=== PATIENT | male | born 1940 | race Caucasian/White ===

== ENCOUNTER → 2017-02-16 | Outpatient (CLI) | payer MEDICARE ==
--- NOTE | 2017-02-18 08:43 | PE ---
EXAMINATION TYPE: PET CT fusion skull to thigh DATE OF EXAM: 02/16/2017 COMPARISON: NONE HISTORY: Right-sided lung cancer progress study per order though suspected initial study since patien t denies recent surgery or treatment, history of treated prostate cancer 2005 per patient. TECHNIQUE: Following the intravenous administration of 14.82 mCi of F-18 FDG, whole body images are performed from the skull base to the midthigh. Images are reviewed on the computer in the coronal, a xial, and sagittal planes. Reconstructed rotating images are created on independent workstation and reviewed on the computer. A localization and attenuation correction CT is performed in conjunction with the PET scan. SCAN: Initial Scan ? FINDINGS: SKULL BASE AND NECK: No suspicious hypermetabolic uptake is seen in the neck to suggest neck adenopa thy. CHEST, MEDIASTINUM, AND HILAR REGION: There is background of moderate to severe emphysematous change. There is lower lobe dependent atelectasis and scattered multifocal and dependent scarring and/or hon eycombing fibrosis seen bilaterally. There is right suprahilar hypermetabolic mass measuring approximately 4.3 x 3.8 cm on axial image 84, max SUV is 9.9. Craniocaudal length is suspected just over 5 cm This mass extends to right hilar lev el where there is more mild hypermetabolic uptake. Mass invades the mediastinum up to right aspect of trachea and indistinct fat plane from SVC and right pulmonary artery near axial image 92. Surroundin g opacities felt to reflect adjacent atelectatic change. There is prominent partially calcified right paratracheal lymph node measures 1.3 x 0.8 cm on axial i mage 83 without definitive abnormal hypermetabolic uptake. No additional areas of abnormal hypermetabolic uptake are identified in the remainder of the thorax. ABDOMEN AND PELVIS: No suspicious areas of abnormal hypermetabolic uptake are seen in the abdomen or pelvis. Normal excretion is present. OSSEOUS STRUCTURES: No suspicious hypermetabolic uptake is seen in osseous structures. OTHER CT: Nasal septum is deviated to right of midline. There is moderate calcified plaque at bilateral carotid bulbs. There is suspicious focal prominence of portions of the right upper extremity vein near axial image 4 0 and more proximally, thrombus cannot be excluded. 3 vessel coronary artery calcification is present. Aorta measures up to 3.8 cm in diameter. There are calcifications posteriorly in the liver. There is slight nodular thickening to both adrenal glands without abnormal hypermetabolic uptake favo ring hyperplasia. There are round hypodense lesions scattered throughout both kidneys without abnormal hypermetabolic u ptake likely reflect reflecting proteinaceous or hemorrhagic cysts. Sigmoid colonic diverticulosis is present. There is moderate calcified plaque of aorta extending into pelvic branch vessels. Goal therapy seeds are seen in prostate gland, dense calcification is noted. There is facet arthropathy in the lower lumbar spine. There is multilevel spurring in the thoracolumb ar spine. Moderate to severe joint space loss is seen in both hips. IMPRESSION: Abnormal hypermetabolic uptake in right suprahilar/hilar lobulated mass correlates to bio psy-proven carcinoma. No metastatic disease is evident. Right hilar adenopathy is likely present santosh stinct from mass. TNM STAGING T3, N1,MO AJCC STAGING IIIa
== END | disposition home or self-care (01) ==
LOC: RADPETMAIN 07:33
PROVIDERS: ATTEND Internal Medicine Sleep Medicine
DX: C34.00 Malignant neoplasm of unspecified main bronchus (principal)
CPT/HCPCS: 78815; A9552

== ENCOUNTER 2017-02-17 11:27 | Emergency (ER) | payer MEDICARE ==
--- NOTE | 2017-02-17 12:53 | ED ---
Extremity Problem HPI <Sudhir Brennan - Last Filed: 02/17/17 14:46> - General Source: patient, RN notes reviewed, old records reviewed Mode of arrival: wheelchair Limitations: no limitations <Diana Nixon - Last Filed: 02/17/17 15:16> - General Chief complaint: Extremity Problem,Nontraumatic Stated complaint: RT LEG SWELLING AFTER PET SCAN Time Seen by Provider: 02/17/17 12:35 - History of Present Illness Initial comments: 76-year-old male presents the ED chief complaint of right lower extremity swelling and achiness whenever he walks for the past day. He reports that he had a PET scan yesterday. He states that the swelling and pain is related to the position he had a BM for the PET scan. He reports that he was diagnosed with lung cancer and is currently being treated with Dr. Hernandez, Dr. Blue his exhaust worker. Patient reports his primary care doctor is Dr. Collins. He denies any specific chest pain or shortness of breath at this time. He reports that he's had some minor numbness and tingling to the toes. He reports that that may be chronic. Denies any fever or chills or any other associated symptoms. He reports that the leg is nontender to touch. He also states that there is no redness noted to the leg. He reports that it originally felt like a charley horse over the back of his calf and leg whenever he walks. (Tiffani Diana) - Related Data Home Medications Medication Instructions Recorded Confirmed Albuterol Inhaler [Ventolin Hfa 1 - 2 puff INHALATION RT-Q6H PRN 02/17/17 Inhaler] Albuterol Nebulized [Ventolin 2.5 mg INHALATION RT-BID 02/17/17 02/17/17 Nebulized] Budesonide/Formoterol Fumarate 2 puff INHALATION RT-BID 02/17/17 02/17/17 [Symbicort 160-4.5 Mcg Inhaler] Repaglinide [Prandin] 0.5 mg PO AC-TID 02/17/17 02/17/17 Simvastatin [Zocor] 20 mg PO HS 02/17/17 02/17/17 Vit C/E/Zn/Coppr/Lutein/Zeaxan 1 cap PO BID 02/17/17 02/17/17 [Preservision Areds 2 Softgel] Previous Rx's Medication Instructions Recorded Rivaroxaban [Xarelto] 15 mg PO BID 21 Days 02/17/17 Allergies Allergy/AdvReac Type Severity Reaction Status Date / Time No Known Allergies Allergy Verified 02/17/17 13:07 Review of Systems ROS Other: All systems not noted in ROS Statement are negative. <Sudhir Brennan - Last Filed: 02/17/17 14:46> ROS Other: All systems not noted in ROS Statement are negative. <Diana Nixon - Last Filed: 02/17/17 15:16> ROS Statement: Those systems with pertinent positive or pertinent negative responses have been documented in the HPI. Past Medical History Past Medical History: Cancer, COPD, Diabetes Mellitus Additional Past Medical History / Comment(s): lung ca prostate ca kidney stone History of Any Multi-Drug Resistant Organisms: None Reported Past Surgical History: Back Surgery Additional Past Surgical History / Comment(s): lithotripsy Past Psychological History: No Psychological Hx Reported Smoking Status: Former smoker Past Alcohol Use History: None Reported <Diana Nixon - Last Filed: 02/17/17 15:16> General Exam <Sudhir Brennan - Last Filed: 02/17/17 14:46> Limitations: no limitations General appearance: alert, in no apparent distress Head exam: Present: atraumatic, normocephalic, normal inspection Eye exam: Present: normal appearance, PERRL, EOMI. Absent: scleral icterus, conjunctival injection, periorbital swelling ENT exam: Present: normal exam, mucous membranes moist Neck exam: Present: normal inspection. Absent: tenderness, meningismus, lymphadenopathy Respiratory exam: Present: normal lung sounds bilaterally. Absent: respiratory distress, wheezes, rales, rhonchi, stridor Cardiovascular Exam: Present: regular rate, normal rhythm, normal heart sounds. Absent: systolic murmur, diastolic murmur, rubs, gallop, clicks GI/Abdominal exam: Present: soft, normal bowel sounds. Absent: distended, tenderness, guarding, rebound, rigid Right Upper Leg exam: Present: swelling Knee exam: Present: normal inspection, full ROM, swelling Lower Leg exam: Present: normal inspection, full ROM, swelling Ankle exam: Present: normal inspection, full ROM, swelling Foot/Toe exam: Present: normal inspection, full ROM, swelling Neurovascular tendon exam: Present: no vascular compromise (Posterior tibial pulses 2+. Dorsalis pedis pulses) Gait: observed and normal ( 1+) Back exam: Present: normal inspection Neurological exam: Present: alert, oriented X3, CN II-XII intact Psychiatric exam: Present: normal affect, normal mood Skin exam: Present: warm, dry, intact, normal color. Absent: rash <TiffaniDiana - Last Filed: 02/17/17 15:16> - General Exam Comments Initial Comments: 76-year-old male. No acute distress. (TiffaniDiana) Medical Decision Making <Sudhir Brennan - Last Filed: 02/17/17 14:46> - Radiology Data Radiology results: report reviewed <TiffaniDiana - Last Filed: 02/17/17 15:16> - Medical Decision Making I interviewed and examined the patient .. He has a swollen tender right leg which started today. He had a PET scan done yesterday reports not available at this time. The scan was from the base of the skull to the mid thigh. The patient has a negative Homans sign but positive ultrasound for DVT from the right knee IV to the distal popliteal vein. The case discussed with Dr. Daniel on-call oncologist. He recommends Xarelto and follow-up with his oncologist Dr. Jeronimo. Dr. Brennan (Sudhir Brennan) 76-year-old male presents the ED chief complaint of right lower extremity swelling and achiness whenever he walks for the past day. He reports that he had a PET scan yesterday. He states that the swelling and pain is related to the position he had a BM for the PET scan. He reports that he was diagnosed with lung cancer and is currently being treated with Dr. Hernandez, Dr. Blue his exhaust worker. Patient reports his primary care doctor is Dr. Collins. He denies any specific chest pain or shortness of breath at this time. He reports that he's had some minor numbness and tingling to the toes. [facility] ultrasound is positive for SVT. Patient will be discharged at this time started on Cerner also. I discussed this with Dr. Brennan who talked to Dr. Daniel the on-call oncologist. He recommends following up with Dr. Hatfield tomorrow. He does have a MRI for his brain scheduled tomorrow as well as follow-up on Saturday with his oncologist. Patient agrees to treatment plan will comply. Return parameters were discussed. (Diana Nixon) - Radiology Data There is an extensive DVT involving the femoral vein and popliteal vein. Extends into the external iliac vein. (Diana Nixon) Disposition <Sudhir Brennan - Last Filed: 02/17/17 14:46> Time of Disposition: 14:54 <Diana Nixon - Last Filed: 02/17/17 15:16> Clinical Impression: Right leg DVT Disposition: HOME SELF-CARE Condition: Good Instructions: Deep Venous Thrombosis (ED) Additional Instructions: Patient advised to apply warm compresses over the leg. Patient should continue to ambulate. Return to the emergency department at once if there is severe shortness of breath or chest pain. Patient needs to take all of the medication as directed. Follow-up on Saturday with her scheduled appointments. Also recommend following up with her primary care provider. Return to the emergency department if any alarming signs or symptoms occur. Prescriptions: Rivaroxaban [Xarelto] 15 mg PO BID 21 Days Referrals: Jonathan Collins MD [Primary Care Provider] - 1-2 days
--- NOTE | 2017-02-17 13:46 | US ---
EXAMINATION TYPE: US venous doppler duplex LE RT DATE OF EXAM: 02/17/2017 1:33 PM COMPARISON: NONE CLINICAL HISTORY: Pain. Right leg pain and swelling x 2 days SIDE PERFORMED: Right TECHNIQUE: The lower extremity deep venous system is examined utilizing real time linear array sonog bora with graded compression, doppler sonography and color-flow sonography. VESSELS IMAGED: External Iliac Vein (EIV) Common Femoral Vein Deep Femoral Vein Greater Saphenous Vein * Femoral Vein Popliteal Vein Small Saphenous Vein * Proximal Calf Veins (* superficial vessels) Right Leg: Positive for DVT right EIV through distal popliteal IMPRESSION: There is extensive deep venous acute thrombosis involving the femoral vein and popliteal vein. This extends into the external iliac vein.
[2017-02-17 14:11] VITALS: RESP 17
[2017-02-17] MEDS ORDERED: RIVAROXABAN 15 MG TAB PO STA (14:51)
[2017-02-17 15:10] VITALS: BP 131/76; PULSE 77; TEMP 97.9
== END 2017-02-17 15:23 | disposition home or self-care (01) ==
LOC: EC 11:27
DX: I82.431 Acute embolism and thrombosis of right popliteal vein (principal); I82.411 Acute embolism and thrombosis of right femoral vein; I82.421 Acute embolism and thrombosis of right iliac vein; J44.9 Chronic obstructive pulmonary disease, unspecified; E11.9 Type 2 diabetes mellitus without complications; Z87.891 Personal history of nicotine dependence; Z85.46 Personal history of malignant neoplasm of prostate; Z85.118 Personal history of other malignant neoplasm of bronchus and lung; Z79.51 Long term (current) use of inhaled steroids; Z79.84 Long term (current) use of oral hypoglycemic drugs; Z79.899 Other long term (current) drug therapy
CPT/HCPCS: 99284

== ENCOUNTER → 2017-05-11 | Outpatient (CLI) | payer MEDICARE ==
--- NOTE | 2017-05-12 20:56 | PE ---
EXAMINATION TYPE: PET CT fusion skull to thigh DATE OF EXAM: 05/11/2017 CLINICAL HISTORY: 76-year-old male with subsequent staging of right lung cancer. Patient with chemora diation completed in March 2017. TECHNIQUE: Following the intravenous administration of 14.1 mCi of F-18 FDG, whole body images are performed from the skull base to the midthigh. Images are reviewed on the computer in the coronal, a xial, and sagittal planes. Reconstructed rotating images are created on independent workstation and reviewed on the computer. A localization and attenuation correction CT is performed in conjunction with the PET scan. Glucose level: 128 mg/dL dose: 14.05 mCi CTDI: 4.25 mGy DLP: 377.96 mGy-cm COMPARISON: 02/16/2017 FINDINGS: PET: Physiologic FDG uptake within the neck. Focal moderate uptake (max SUV 3.8) along the posterior left deltoid musculature likely some muscular uptake. The patient's intensely hypermetabolic right suprahilar mass has become less confluent and smaller. T here is residual opacity here but only mild FDG uptake, maximum SUV 2.4 versus 9.9, previously. There is additional increased uptake present in the anterior left upper lobe (Max SUV 2.5), scattered throughout the right upper lobe (max SUV 2.9), and in a well marginated distribution along the media l aspect of the right mid and lower lung that shows corresponding groundglass that is new or increase d from 02/16/2017 (Max SUV 5.1). This increased uptake seems to abruptly cut off at the level of the b ranching of the bronchus basalis. Additional stable groundglass is present at both lung bases with reticular densities and traction bro nchiectasis that shows mild uptake, max SUV 2.3, unchanged. There are numerous bilateral renal lesions. Some of these are hyperdense compatible with hemorrhagic cysts. Some show soft tissue density, for example, the 2.9 cm lateral upper pole left kidney lesion. However, these are ametabolic making underlying neoplasm unlikely. Variable bowel uptake is present, max SUV 5.5. Some areas are more focal and noted to be new from 01/27, most likely physiologic muscular activity. Max SUV Multifocal intense FDG uptake (Max SUV 10.1) along the sigmoid colon and rectum can be evaluated with routine screening colonoscopy. These are also new from 02/16/2017 and inflammatory vs physiologic va riation is favored. ATTENUATION CORRECTION CT: Visualized paranasal sinuses and mastoid air cells appear clear. No thoracic lymphadenopathy seen. The heart is normal size with coronary vessel calcifications which is a marker for coronary artery di sease. Ascending aorta ectatic at 3.6 cm. Ectatic lower descending thoracic aorta at 2.8 cm. [place] ional arch vessel branching anatomy. Large caliber to the main right pulmonary arteries are 2.6 and 2 .8 cm, respectively, suggesting underlying pulmonary arterial hypertension. At least moderate COPD. N o thoracic lymphadenopathy by CT size criteria. Couple nonenlarged right paratracheal and subcarinal partially calcified lymph nodes suggesting prior granulomatous disease. No dilated small bowel, free fluid, or free air. No mesenteric or retroperitoneal lymphadenopathy. Si gmoid diverticulosis. Mild circumferential bladder wall thickening. Brachytherapy seeds are present in the prostate gland. No abnormal fluid collection in the pelvis or pelvic lymphadenopathy seen. Bones: Mild degenerative changes at the hips. Degenerative changes lower lumbar spine and endplate sp ondylosis mid to lower thoracic spine. No osseous destructive process. IMPRESSION: 1. Residual density at the patient's previous right suprahilar neoplasm but with minimal uptake here now (max SUV 2.4 versus 9.9, previously) compatible with complete to near complete treatment response . 2. However, there is extensive new groundglass along the medial mid and lower right lung as well as t he anterior left midlung that seems to correspond to a radiation port. This shows borderline intense FDG uptake. Correlate for radiation pneumonitis. 3. There is underlying COPD but additional chronic groundglass, reticulations, and some bronchiectasi s at the lung bases that shows unchanged mild uptake. This is felt to reflect a chronic inflammatory process such as an interstitial pneumonitis. Clinically correlate. 4. Variable bowel uptake especially along the sigmoid colon and rectum is new. These areas show inten se hypermetabolism up to SUV 10.1. Normal variation in bowel uptake is favored. Correlate with routin e colonoscopy if not recently performed. 5. Incidental: Multiple renal lesions some of which are hemorrhagic cysts while others are indetermin ate but seem to be ametabolic suggesting additional complicated cysts. Pulmonary arterial hypertensio n, sigmoid diverticulosis, brachytherapy seeds in the prostate gland, and mild circumferential bladde r wall thickening.
== END | disposition home or self-care (01) ==
LOC: RADPETMAIN 09:59
PROVIDERS: ATTEND Internal Medicine Hematology & Oncology
DX: C34.11 Malignant neoplasm of upper lobe, right bronchus or lung (principal); J44.9 Chronic obstructive pulmonary disease, unspecified
CPT/HCPCS: 78815; A9552

== ENCOUNTER → 2019-07-10 | Outpatient (CLI) | payer MEDICARE ==
--- NOTE | 2019-07-14 10:28 | PE ---
Nuclear medicine PET/CT HISTORY: Lung carcinoma, subsequent Patient received 9.3 mCi F-18 FDG intravenously in delayed scanning was performed from the skull base to the mid thighs. Localization and attenuation correction CT scan was performed. Correlation to prior nuclear medicine PET/CT 05/11/2017, prior chest CT 02/20/2018 Neck and chest: There is no evident cervical or supraclavicular adenopathy. No axillary or hilar kurtis opathy. Consolidation present at the upper lobe is associated with cavitary destruction on the right, there are extensive areas of air bronchogram and cavitary appearance in the posterior right lung add itionally has progressed in the interval. There is associated hypermetabolic uptake present which is somewhat more diffuse than on prior exam, there is peripheral uptake, SUV only 1.7. There is no pleur al effusion. Coronary artery calcifications are again noted. ABDOMEN: No evident adrenal mass. No liver mass or retroperitoneal adenopathy. Extensive diverticular change noted in the sigmoid colon. Metallic beads in the prostate, prostate calcifications are prese nt. No pelvic adenopathy or free fluid. There is a large amount of activity associated with the left upper extremity presumably due to infilt ration of the radiopharmaceutical in the soft tissues. There is uptake identified associated with the anterior aspect of left seventh rib is indeterminate. IMPRESSION: Infiltration of a portion of the dose is noted may limit the exam. There is progression i n the cavitary appearance in the right upper lobe. Indeterminate uptake along the costal chondral mnady ction the anterior seventh rib, correlate for possible history of trauma.
== END | disposition home or self-care (01) ==
LOC: RADPETMAIN 14:20
PROVIDERS: ATTEND Internal Medicine Hematology & Oncology
DX: C34.11 Malignant neoplasm of upper lobe, right bronchus or lung (principal)
CPT/HCPCS: 78815; A9552